=== PATIENT | male | born 2000 | race Caucasian/White ===

== ENCOUNTER 2024-02-25 15:53 | Emergency (ER) | payer OTHER, SELFPAY ==
[2024-02-25 16:06] VITALS: BP 135/78; PULSE 55; RESP 16; TEMP 36.5; O2SAT 97
--- NOTE | 2024-02-25 16:10 | ED.GENADUL_ITS ---
Discharge Plan Disposition Patient Disposition: Home Condition: Improving Discharge Details Clinical Impression: Facial laceration, Bite wound Primary Care Provider: Caryl,Local ED Provider: Miguel Larios Home Meds and New Rx's Prescriptions: New amoxicillin-pot clavulanate 875-125 mg tablet 1 tab PO BID 5 Days Qty: 10 0RF No Action No Known Home Meds Discharge Instructions Instructions: Human Bite, Laceration Repair With Stitches ED Additional Instructions: Please keep wound clean and dry. Please return to the emerged part for any worsening symptoms. Your sutures are absorbable and should start to dissolve within 7 to 10 days. Take antibiotics as prescribed HPI General Date/Time Provider Initiated Documentation: 02/25/24 15:56 . HPI Narrative: 24-year-old male presents after sustaining accidental bite wound to the left side of his forehead while playing basketball, came into contact with another player's mouth, unknown tetanus status, no loss of consciousness, hemostatic butterfly bandaged at scene Related Data Home Medications ?Medication ?Instructions ?Recorded ?Confirmed Unknown [No Known Home Meds] 02/25/24 02/25/24 amoxicillin 875 mg-potassium 1 tab PO BID 5 days #10 tabs 02/25/24 clavulanate 125 mg tablet Previous Rx's ?Medication ?Instructions ?Recorded amoxicillin 875 mg-potassium 1 tab PO BID 5 days #10 tabs 02/25/24 clavulanate 125 mg tablet Allergies Allergy/AdvReac Type Severity Reaction Status Date / Time No Known Allergies Allergy Unverified 02/25/24 16:10 Exam Narrative Exam Narrative: 1.5 cm minimally gaping laceration to left lateral brow hemostatic no foreign body Alert oriented interactive Pupils round reactive to light Moist mucous membranes tongue secretions Speaking full sentences No signs of spinal chest or abdominal trauma Ambulatory without assistance moving all extremities no ataxia Medical Decision Making 24-year-old male presents with 1.5 cm minimally gaping laceration to left lateral forehead after accidental contact with another player's tooth while playing basketball, hemostatic no foreign body appreciated, no other signs of trauma neurologically intact, unknown tetanus status, given bite wound will initiate Augmentin, given location on face with minimally gaping nature will plan to anesthetized with L ET gel, irrigated extensively and closed loosely with 1 simple erupted suture for cosmesis 16: 52 wound irrigated extensively with sterile normal saline, no foreign bodies, hemostatic, closed loosely with 1 x 5-0 Vicryl simple interrupted Steri- Strip applied home care instructions and return precautions given. Patient started on prophylactic Augmentin Quality:SDOH Health Related Social Needs: No Data to Display PFSH All Active Problems (Updated 02/25/24 @ 16:53 by Miguel Larios MD) Bite wound (Acute) Facial laceration (Acute) Social History Smoking/Tobacco Use Status: Never Smoking risk assessment performed?: Yes Alcohol Intake: current Alcohol Intake frequency: a few times a week Alcohol type: beer Substance use type: does not use Housing: apartment Do you feel safe at home: Yes Do you feel safe in your relationship?: Yes
[2024-02-25] MEDS: Lidocaine/Epinephri/Tetracaine Topical Gel 3 ML TP (16:15)
[2024-02-25] MEDS: Amoxicillin 875/Clav. 125 TAB PO (16:15)
== END 2024-02-25 16:58 | disposition home or self-care (01) ==
LOC: ER 17:05
PROVIDERS: Emergency Provider Emergency Medicine
DX: S01.81XA Laceration without foreign body of other part of head, initial encounter (principal); W22.8XXA Striking against or struck by other objects, initial encounter; Y93.67 Activity, basketball
CPT/HCPCS: 99283